=== PATIENT | male | born 2000 | race Caucasian/White ===

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

== ENCOUNTER 2022-11-20 19:55 | Emergency (ER) | payer OTHER ==
[~2022-11-20] VITALS: Ht 170.2 cm; Wt 86.2 kg
[2022-11-20 19:59] VITALS: BP 133/72
--- NOTE | 2022-11-20 19:59 | NUR ---
PT MICHELLE BLS. TAKEN TO BED 8
--- NOTE | 2022-11-20 20:06 | NUR ---
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
--- NOTE | 2022-11-20 20:25 | NUR ---
DR JENSEN AT BEDSIDE
[2022-11-20] MEDS ORDERED: QUEtiapine FUMARATE 100 MG TAB PO ONE (20:30)
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
--- NOTE | 2022-11-20 20:47 | NUR ---
PT REFUSED TO TAKE SERQUEOL AND CT . DR JENSEN AWARE
[2022-11-20] MEDS ORDERED: QUET100T PO (20:50)
--- NOTE | 2022-11-20 20:54 | NUR ---
DR JENSEN AT BEDSIDE PT IS WILLING TO TAKE MEDS BUT NO CT SCAN
[2022-11-20] MEDS ORDERED: QUEtiapine FUMARATE 100 MG TAB PO SCH (20:55)
--- NOTE | 2022-11-20 20:55 | NUR ---
Patient discharged with v/s stable. Written and verbal after care instructions given and explained. Patient verbalized understanding. Ambulatory with steady gait. All questions addressed prior to discharge. Advised to follow up with PMD.
--- NOTE | 2022-11-20 21:07 | NUR ---
The patient's care was reviewed and supervised by Tiffanie Quintero RN, RN.
== END 2022-11-20 20:55 | disposition home or self-care (01) ==
LOC: MED 19:55
DX: S16.1XXA Strain of muscle, fascia and tendon at neck level, initial encounter (principal); Z76.0 Encounter for issue of repeat prescription; W18.30XA Fall on same level, unspecified, initial encounter; Y93.89 Activity, other specified; Y92.89 Other specified places as the place of occurrence of the external cause; Y99.8 Other external cause status
CPT/HCPCS: 93005; 99283

== ENCOUNTER 2023-02-09 00:25 | Emergency (ER) | payer OTHER ==
[~2023-02-09] VITALS: Ht 170.2 cm; Wt 86.2 kg
[2023-02-09 00:25] VITALS: BP 151/86; PULSE 102; RESP 18; TEMP 98.2; O2SAT 98
[~2023-02-09 00:25] MED LIST changes: +QUET100T PO
--- NOTE | 2023-02-09 00:25 | NUR ---
TO LOBBY , A/W BED, BIBA C/O DIFF OF BREATHING
--- NOTE | 2023-02-09 01:26 | NUR ---
PT TAKEN TO BED 11
--- NOTE | 2023-02-09 02:52 | NUR ---
Patient awake and comfortable in bed with no signs of acute distress at this time. VS stable. Side rails up and call light within reach.
[2023-02-09 02:53] VITALS: TEMP 98.2
[2023-02-09 05:02] VITALS: BP 135/95; PULSE 98; RESP 16; O2SAT 97
--- NOTE | 2023-02-09 05:03 | NUR ---
Patient asleep and comfortable in bed with no signs of acute distress at this time. VS stable. Side rails up and call light within reach.
--- NOTE | 2023-02-09 06:00 | NUR ---
Patient discharged. Written and verbal after care instructions given and explained. Patient verbalized understanding. Ambulatory with steady gait. All questions addressed prior to discharge. Advised to follow up with PMD.
== END 2023-02-09 06:00 | disposition home or self-care (01) ==
LOC: MED 00:25
DX: F15.10 Other stimulant abuse, uncomplicated (principal); Z88.8 Allergy status to other drugs, medicaments and biological substances; Z79.899 Other long term (current) drug therapy
CPT/HCPCS: 99283; 99285

== ENCOUNTER 2023-02-14 20:37 | Emergency (ER) | payer OTHER ==
[~2023-02-14] VITALS: Ht 170.2 cm; Wt 108.9 kg
--- NOTE | 2023-02-14 20:42 | NUR ---
PT. MICHELLE MORRISON. PLACED IN BED 08
[2023-02-14 20:45] VITALS: BP 139/73; PULSE 97; RESP 20; TEMP 97.8; O2SAT 95
--- NOTE | 2023-02-14 21:05 | NUR ---
DR JENSEN AT BEDSIDE
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
--- NOTE | 2023-02-14 21:30 | NUR ---
[place] [facility] AT BEDSIDE. PREBOOK. MED CLEAR FOR BOOKING. PT HAS HX OF MARIANELA
--- NOTE | 2023-02-14 21:48 | NUR ---
PT TO CT WITH PD ESCORT
--- NOTE | 2023-02-14 22:00 | NUR ---
PT BACK FROM CT
[2023-02-14] MEDS ORDERED: PROPOFOL 200 MG/20 ML VIAL IV ONE (22:17)
[2023-02-14] MEDS ORDERED: ACET-2619 PO (23:44)
--- NOTE | 2023-02-14 23:54 | NUR ---
Patient discharged with v/s stable. Written and verbal after care instructions given and explained. New rx tylenol. Patient verbalized understanding. Ambulatory and in custody by [facility] [employer]. All questions addressed prior to discharge. Advised to follow up with PMD.
[2023-02-14 23:56] VITALS: BP 139/73; PULSE 97; RESP 20; TEMP 97.8; O2SAT 95
== END 2023-02-14 23:54 ==
LOC: MED 20:37
DX: S09.90XA Unspecified injury of head, initial encounter (principal); R11.0 Nausea; M54.2 Cervicalgia; Z88.1 Allergy status to other antibiotic agents; Z79.899 Other long term (current) drug therapy; W22.8XXA Striking against or struck by other objects, initial encounter; Y93.89 Activity, other specified; Y92.89 Other specified places as the place of occurrence of the external cause; Y99.8 Other external cause status
CPT/HCPCS: 70450; 99284; J2704